=== PATIENT | female | born 1975 | race African-American/Black ===

== ENCOUNTER 2016-08-12 15:35 | Emergency (ER) | payer MEDICARE, OTHER ==
[2015-02-09 22:09] VITALS: BP 173/84
== END 2016-08-12 16:21 | disposition left against medical advice (07) ==
LOC: ER 15:35
DX: R42 Dizziness and giddiness (principal); Z53.21 Procedure and treatment not carried out due to patient leaving prior to being seen by health care provider

== ENCOUNTER 2017-07-11 13:32 | Emergency (ER) | payer MEDICARE, OTHER ==
[2017-07-11 15:37] LABS: URINE HCG POC HCG NEGATIVE (Negative)
== END 2017-07-11 16:20 | disposition home or self-care (01) ==
LOC: ER 13:32
DX: S46.911A Strain of unspecified muscle, fascia and tendon at shoulder and upper arm level, right arm, initial encounter (principal); I11.0 Hypertensive heart disease with heart failure; I50.9 Heart failure, unspecified; J45.909 Unspecified asthma, uncomplicated; E11.9 Type 2 diabetes mellitus without complications; Z88.0 Allergy status to penicillin; Z88.5 Allergy status to narcotic agent; V43.53XA Car driver injured in collision with pick-up truck in traffic accident, initial encounter; Y93.89 Activity, other specified; Y99.8 Other external cause status; Y92.415 Exit ramp or entrance ramp of street or highway as the place of occurrence of the external cause
CPT/HCPCS: 73030; 73090; 81025; 99284

== ENCOUNTER 2017-12-30 22:43 | Emergency (ER) | payer MEDICARE ==
[~2017-12-30] VITALS: Ht 157.5 cm; Wt 81.2 kg
[2017-12-30 22:55] VITALS: BP 155/94
[2017-12-30] MEDS ORDERED: IV NORMAL SALINE 1000ML BAG 1,000 ML IV ONE (23:45)
[2017-12-30] MEDS ORDERED: PROCHLORPERAZINE 10 MG/2 ML VIAL. IV ONE (23:45)
[2017-12-30] MEDS ORDERED: MORPHINE SULFATE 10 MG/ML VIAL. IV ONE (23:45)
--- NOTE | 2017-12-30 23:45 | PHYS DOC ---
Past Medical History Past Medical History: Asthma, CHF, Diabetes-Type II, Hypertension, Seizure, Other Additional Past Medical Histor: osteoporosis, TUMOR Past Surgical History: , Other Additional Past Surgical Histo: D&C, plastic surgery to R hand Alcohol Use: Rarely Drug Use: None Adult General Chief Complaint Chief Complaint: DIZZY/LIGHT HEADED HPI HPI Patient is a 42 year old female who presents with multiple complaints. Patient states she's been having a headache over the last 2-3 days. The pain is generalized but she is concerned that she did have a prior CVA several years ago. She did not have any sequelae from her stroke. She also complains of diffuse body aches and intermittent chest pains which have been going on for several days also. She endorses increased stress at home and she has been arguing her fighting with her significant other. Denies domestic abuse. The patient also has concerns that she cannot get into her primary care doctor for 3 more weeks but she is out of her medications for high blood pressure and diabetes and chronic pain. Currently no chest pain. Her primary complaint is headache this evening. Review of Systems Review of Systems Constitutional: Denies fever Eyes: Denies change in visual acuity HENT: Denies nasal congestion or sore throat Respiratory: Denies cough or shortness of breath Cardiovascular: No additional information not addressed in HPI GI: Denies abdominal pain : Denies dysuria or hematuria Musculoskeletal: Denies back pain Integument: Denies rash or skin lesions Neurologic: Denies focal weakness or sensory changes Endocrine: Denies polyuria or polydipsia All other systems were reviewed and found to be within normal limits, except as documented in this note. Current Medications Current Medications Current Medications Medications (Trade) Dose Ordered Sig/Mike Start Time Stop Time Status Last Admin Dose Admin Morphine Sulfate (Morphine Sulfate) 5 mg 1X ONCE 12/30/17 23:45 12/30/17 23:49 DC 12/31/17 00:15 5 MG Prochlorperazine Edisylate (Compazine) 10 mg 1X ONCE 12/30/17 23:45 12/30/17 23:47 DC 12/31/17 00:15 10 MG Sodium Chloride 1,000 ml @ 1,000 mls/hr 1X ONCE 12/30/17 23:45 12/31/17 00:44 DC 12/31/17 00:00 1,000 MLS/HR Allergies Allergies Allergies Coded Allergies Type Severity Reaction Last Updated Verified Penicillins Allergy Severe Anaphylaxis 05/27/14 Yes naproxen Allergy Severe Anaphylaxis 05/27/14 Yes tramadol Allergy Severe Anaphylaxis 02/09/15 Yes Physical Exam Physical Exam Constitutional: Well developed, well nourished, no acute distress, non-toxic appearance. HENT: Normocephalic, atraumatic, bilateral external ears normal, oropharynx moist Eyes: PERRLA, EOMI, conjunctiva normal Neck: Normal range of motion, no tenderness Cardiovascular:Heart rate regular rhythm, no murmur Lungs & Thorax: Bilateral breath sounds clear Abdomen: Bowel sounds normal, soft, no tenderness Skin: Warm, dry, no erythema, no rash Extremities: No tenderness, no edema Neurologic: Alert and oriented X 3, normal motor function, normal sensory function, no focal deficits noted Psychologic: Affect normal Current Patient Data Vital Signs Vital Signs Date Time Temp Pulse Resp B/P (MAP) Pulse Ox O2 Delivery O2 Flow Rate FiO2 12/31/17 00:15 18 98 Room Air 12/30/17 22:55 98.2 72 155/94 (114) 98.2 Lab Values Laboratory Tests Test 12/31/17 00:25 White Blood Count 9.7 x10^3/uL (4.0-11.0) Red Blood Count 4.49 x10^6/uL (3.50-5.40) Hemoglobin 12.5 g/dL (12.0-15.5) Hematocrit 37.7 % (36.0-47.0) Mean Corpuscular Volume 84 fL (79-100) Mean Corpuscular Hemoglobin 28 pg (25-35) Mean Corpuscular Hemoglobin Concent 33 g/dL (31-37) Red Cell Distribution Width 17.7 % (11.5-14.5) H Platelet Count 194 x10^3/uL (140-400) Sodium Level 140 mmol/L (136-145) Potassium Level 3.5 mmol/L (3.5-5.1) Chloride Level 107 mmol/L (98-107) Carbon Dioxide Level 23 mmol/L (21-32) Anion Gap 10 (6-14) Blood Urea Nitrogen 9 mg/dL (7-20) Creatinine 0.8 mg/dL (0.6-1.0) Estimated GFR (Cockcroft-Gault) 96.1 Glucose Level 98 mg/dL (70-99) Calcium Level 9.0 mg/dL (8.5-10.1) Troponin I Quantitative < 0.017 ng/mL (0.000-0.055) Laboratory Tests 12/31/17 00:25 Laboratory Tests 12/31/17 00:25 EKG EKG No STEMI Interpretation Time: 23:50 Radiology/Procedures Radiology/Procedures CT head: normal Course & Med Decision Making Course & Med Decision Making Pertinent Labs and Imaging studies reviewed. (See chart for details) Patient is examined in the ER for primary complaint of migraine headache. She was given some IV medications which did entirely relieve her symptoms. Because of her history of stroke, CT scan of the head was done and was normal. By the end of the ED course, the patient was pain-free. She was requesting discharge home. The patient has follow-up already scheduled in 3 weeks with her primary care doctor but she did request refills of her normal daily medications for blood pressure, diabetes, and chronic pain. These were provided prior to discharge. Patient was agreeable to the plan of care and all of her questions were answered prior to discharge home. She is not driving tonight. She is calling a family member for a ride. Dragon Disclaimer Dragon Disclaimer This electronic medical record was generated, in whole or in part, using a voice recognition dictation system. Departure Departure Referrals: NO PCP (PCP) Scripts Acetaminophen With Codeine (ACETAMINOPHEN-COD #3 TABLET) 1 Each Tablet 1 TAB PO PRN Q4HRS PRN for PAIN, #30 TAB Prov: BROOKE SUGGS DO 12/31/17 Ibuprofen (IBUPROFEN) 800 Mg Tablet 800 MG PO PRN TID PRN for PAIN, #60 TAB take with food or milk to avoid upsetting stomach Prov: BROOKE SUGGS DO 12/31/17 Albuterol Sulfate (VENTOLIN HFA INHALER) 18 Gm Hfa.aer.ad 2 PUFF INH Q4HRS for dyspnea, #1 INHALER 0 Refills Prov: BROOKE SUGGS DO 12/31/17 Insuln Asp Prt/Insulin Aspart (NOVOLOG MIX 70-30 VIAL) 100 Unit/1 Ml Vial 15 UNIT SQ PRN PRN for hyperglycemia for 30 Days, #1 VIAL Prov: BROOKE SUGGS DO 12/31/17 Insulin Glargine,Hum.rec.anlog (LANTUS SOLOSTAR) 100 Unit/1 Ml Insuln.pen 15 UNIT SQ QHS for 30 Days, #1 SYR Prov: BROOKE SUGGS DO 12/31/17 Nifedipine (NIFEDIPINE ER) 30 Mg Tab.er.24 1 TAB PO DAILY, #30 TAB 0 Refills Prov: BROOKE SUGGS DO 12/31/17 BROKOE SUGGS DO Dec 30, 2017 23:45
--- NOTE | 2017-12-31 00:27 | RAD ---
INDICATION: HTN, [place], dizziness, prior sent COMPARISON: February 09, 2015 TECHNIQUE: Axial CT images obtained through the head without intravenous contrast. One or more of the following individualized dose reduction techniques were utilized for this examination: 1. Automated exposure control; 2. Adjustment of the mA and/or kV according to patient size; 3. Use of iterative reconstruction technique. FINDINGS: No intracranial hemorrhage. No midline shift. Basal cisterns patent. Ventricles and sulci are unremarkable. No acute osseous abnormality. Orbits and paranasal sinuses unremarkable. IMPRESSION: 1. No acute intracranial hemorrhage. Electronically signed by: Yuri Leong MD (12/31/2017 12:24 AM) [id number]
[2017-12-31 00:35] LABS: HEMATOCRIT 37.7 % (36.0-47.0); HEMOGLOBIN 12.5 g/dL (12.0-15.5); RED BLOOD COUNT 4.49 x10^6/uL (3.50-5.40); RED CELL DISTRIBUTION WIDTH 17.7 % (11.5-14.5); WHITE BLOOD COUNT 9.7 x10^3/uL (4.0-11.0)
[2017-12-31 00:44] LABS: CREATININE 0.8 mg/dL (0.6-1.0); GFR 96.1; POTASSIUM 3.5 mmol/L (3.5-5.1)
[2017-12-31] MEDS ORDERED: IBUP-1060 PO (01:30)
[2017-12-31] MEDS ORDERED: INSU100I13 SQ (01:30)
[2017-12-31] MEDS ORDERED: NIFE30TA17 PO (01:30)
[2017-12-31] MEDS ORDERED: VENTOLIN HFA18 GM INH (01:30)
[2017-12-31] MEDS ORDERED: INSU100V12 SQ (01:30)
[2017-12-31] MEDS ORDERED: ACET1TAB33 PO (01:30)
--- NOTE | 2017-12-31 02:16 | EKG ---
[facility] [address] [place] [address] Test Date: 2017-12-30 Test Time: 23:48:47 Pat Name: BLANQUITA LITTLE Department: Room: Gender: F Senior Financial Analyst: : 1975 Requested By: BROOKE SUGGS Order Number: [id number] Reading MD: Measurements Intervals [place] Rate: 60 P: 54 CO: 150 QRS: 23 QRSD: 90 T: 26 QT: 404 QTc: 408 Interpretive Statements SINUS RHYTHM NORMAL ECG No previous ECG available for comparison
== END 2017-12-31 01:43 | disposition home or self-care (01) ==
LOC: ER 22:43
DX: G43.909 Migraine, unspecified, not intractable, without status migrainosus (principal); R07.89 Other chest pain; M79.10 Myalgia, unspecified site; R42 Dizziness and giddiness; G89.29 Other chronic pain; I11.0 Hypertensive heart disease with heart failure; I50.9 Heart failure, unspecified; E11.9 Type 2 diabetes mellitus without complications; Z86.73 Personal history of transient ischemic attack (TIA), and cerebral infarction without residual deficits; J45.909 Unspecified asthma, uncomplicated; Z88.0 Allergy status to penicillin; Z88.5 Allergy status to narcotic agent; Z88.6 Allergy status to analgesic agent
CPT/HCPCS: 36415; 70450; 80048; 84484; 85027; 93005; 96361; 96374; 96375; 99285; J0780; J2270; J7030